=== PATIENT | male | born 1965 | race Caucasian/White ===

== ENCOUNTER → 2017-08-16 07:02 | Outpatient (CLI) | payer OTHER ==
[~2017-08-16] VITALS: Ht 170.2 cm; Wt 92.7 kg
--- NOTE | ~2017-08-16 | HEMODYNAMI ---
PATIENT:SUSAN HAGEN MEDICAL RECORD: [id number] : 69 LOCATION:[facility] ADMISSION DATE: 08/16/17 Generatedon:08/16/20179:48 Patient name: SUSAN HAGEN Patient #: [id number] SSN: : 1965 Date of study: 08/16/2017 Page: Of Hemodynamic Procedure Report Patient Data Patient Demographics Procedure consent was obtained First Name: SUSAN Gender: Male Last Name: HIEU : 1965 Patient #: [id number] Age: 51 year(s) Race: Unknown Additional ID: [id number] Contact details Address: [address] [place] [address] State: [place] City: [facility] Zip code: [address] Past Medical History Allergies: No known allergies Admission Admission Data Admission Date: 08/16/2017 Admission Time: 7:02 Height (in.): 5.7 BSA: 0.35 (m2) Height (cm.): 14.48 BMI: 4630.87 (kg/m2) Weight (lbs.): 214 Weight (kg.): 97.07 Lab Results Lab Result Date: 08/16/2017 Lab Result Time: 0:00 Biochemistry Name Units Result Min Max BUN mg/dl 14 --(--*-)-- 7 18 Creatinine mg/dl 1 --(--*-)-- 0.6 1.3 CBC Name Units Result Min Max Hemoglobin g/dl 17.3 --(---*)-- 13.5 17.5 Procedure Procedure Types Cath Procedure Diagnostic Procedure LHC LHC w/Coronaries Aortic Root Angiography Sedation Charges Moderate Sedation up to 30 minutes Procedure Description Procedure Date Procedure Date: 08/16/2017 Procedure Start Time: 9:22 Procedure End Time: 9:47 Procedure Staff Name Function Shay Major MD Performing Physician Mary Carter RT Monitor Markel Pagan RT Scrub Edy Hodgson RN Nurse Procedure Data Cath Procedure Fluoroscopy Diagnostic fluoroscopy Total fluoroscopy Time: 6.5 time: 6.5 min min Diagnostic fluoroscopy Total fluoroscopy dose: dose: 1142 mGy 1142 mGy Contrast Material Contrast Material Type Amount (ml) Isovue 300 138 Entry Location Entry Primary Successful Side Size Upsize Upsize Entry Closure Parada ccessful Closure Location (Fr) 1 (Fr) 2 (Fr) Remarks Device Remarks Radial Right 6 Fr Mechanical artery Short Compression Estimated blood loss: 5 ml Diagnostic catheters Device Type Used For End Catheter Placement DIAGNOSTIC Len 110cm Procedure 5Fr catheter ([id number]) DIAGNOSTIC AR MOD 5Fr Procedure Catheter ([id number]) DIAGNOSTIC AR 2 MOD 5 Fr Procedure catheter ([id number]) DIAGNOSTIC Pigtail 5Fr Aortic Root catheter ([id number]) Angiography Procedure Complications No complications Procedure Medications Medication Administration Route Dosage Oxygen NC 2 l/min Lidocaine 2% added to field 20 Heparin Flush Bag added to field 2 bags (1000units/500ml NS) 0.9% NaCl I.V. 100 ml/hr Versed I.V. 1 mg Fentanyl I.V. 50 mcg Versed I.V. 1 mg Fentanyl I.V. 50 mcg Radial Cocktail I.A. 1 syringe (Verapomil 2mg/Nitro 400mcg/Heparin 1500units) Hemodynamics Rest BSA: 0.35 (m2) HGB: 17.3 (g/dl) O2 Consumption: Estimated: 41.93 (ml/min) O2 Con sumption indexed: Estimated:119.8 (ml/min/m) Heart Rate: 70 (bpm) Pressure Samples Time Site Value (mmHg) Purpose Heart Use Rate(bpm) 9:25 LV 133/-2,16 Snapshot 79 9:26 AO 115/78(91) Pullback 79 9:26 LV 131/-3,10 Pullback 79 Gradients Valve Time Site 1 Site 2 Mean SEP/DFP Peak To Heart Use (mmHg) (sec/min) Peak Rate (mmHg) (bpm) Aortic 9:26 LV AO 11 5 16 79 131/-3,10 115/78(91) Calculations Valve P-P Mean Valve Index Valve Source Name Gradient Area Flow (cm2) Aortic 16 11 16 11 Snapshots Pre Cath Intra NCS Post Cath Vital Signs Time Heart Resp SPO2 etCO2 NIBP (mmHg) Rhythm Pain Sedation Rate (ipm) (%) (mmHg) Status Level (bpm) 9:08:16 75 16 100 22.5 160/101(123) NSR 0 (11) 10(A) , No pain 9:12:56 78 15 95 0 146/104(121) NSR 0 (11) 10(A) , No pain 9:17:41 79 15 93 0 151/92(130) NSR 0 (11) 10(A) , No pain 9:22:22 76 16 93 24 142/100(117) NSR 0 (11) 9(A) , No pain 9:27:06 79 16 94 27.7 133/79(116) NSR 0 (11) 9(A) , No pain 9:31:47 78 16 92 27 140/80(114) NSR 0 (11) 9(A) , No pain 9:36:28 77 14 93 21.7 142/87(126) NSR 0 (11) 9(A) , No pain 9:41:12 75 15 94 23.2 141/82(101) NSR 0 (11) 9(A) , No pain 9:45:55 71 18 93 25.5 134/86(103) NSR 0 (11) 10(A) , No pain Medications Time Medication Route Dose Verified Delivered Reason Notes E ffectiveness by by 9:06:53 Oxygen NC 2 l/min Shay Buffie used for Pedrito Hodgson RN procedure 9:07:01 Lidocaine 2% added 20ml Hsay Shay for local to vial Pedrito Major MD anesthetic field 9:07:06 Heparin Flush added 2 bags Shay Shay used for Bag to Pedrito Major MD procedure (1000units/500ml field NS) 9:07:16 0.9% NaCl I.V. 100 Shay Buffie Per ml/hr Pedrito Hodgson RN physician 9:11:15 Versed I.V. 1 mg Shay Buffie for sedation Pedrito Hodgson RN 9:11:21 Fentanyl I.V. 50 mcg Shay Buffie for sedation Pedrito Hodgson RN 9:15:48 Versed I.V. 1 mg Shay Buffie for sedation Pedrito Hodgson RN 9:15:52 Fentanyl I.V. 50 mcg Shay Buffie for sedation Pedrito Hodgson RN 9:24:08 Radial Cocktail I.A. 1 Shay Shay for (Verapomil syringe Major MD Major MD vasodilation 2mg/Nitro 400mcg/Heparin 1500units) Procedure Log Time Note 8:51:56 Markel Pagan RT(R) sent for patient. Start room use. 8:51:57 Time tracking: Regular hours 8:52:00 Plan of Care:Hemodynamics will remain stable., Cardiac rhythm will remain stable., Comfort level will be maintained., Respiratory function will remain adequate., Patient/ family verbilizes understanding of procedure., Procedure tolerated without complication., Recovers from procedure without complications.. 8:54:06 H&P Date Dictated: 08/08/2017 Within 30 days and on chart., H&P Addendum completed by physician on day of procedure. (MUST COMPLETE FOR ALL OUTPATIENTS). 8:54:17 Patient Height : 5.7 inches 8:54:20 Patient Weight : 214 lbs 8:54:32 Patient allergic to No known allergies 8:56:15 Patient received from Pre/Post Procedure Room to CCL 1 Alert and oriented. Tansferred to table in Supine position. 8:56:16 Warm blankets applied, and liz hugger turned on for patient comfort. 8:56:16 Correct patient and procedure confirmed by team. 8:56:17 Signed procedure consent form obtained from patient. 8:56:18 ECG and BP/O2 sat monitors applied to patient. 9:06:53 Oxygen 2 l/min NC was administered by Edy Hodgson RN; used for procedure; 9:07:01 Lidocaine 2% 20ml vial added to field was administered by Shay Major MD; for local anesthetic; 9:07:06 Heparin Flush Bag (1000units/500ml NS) 2 bags added to field was administered by Shay Major MD; used for procedure; 9:07:16 0.9% NaCl 100 ml/hr I.V. was administered by Edy Hodgson RN; Per physician; 9:07:19 Vital chart was started 9:07:51 Baseline sample Acquired. 9:08:03 Rhythm: sinus rhythm 9:08:04 Full Disclosure recording started 9:08:06 Pre-procedure instructions explained to patient. 9:08:06 Pre-op teaching completed and patient verbalized understanding. 9:08:10 Family in patients room. 9:08:11 Patient NPO since Midnight. 9:08:13 Is the patient allergic to Iodine/contrast media? No. 9:08:14 Is patient on blood thinner?No 9:08:17 Patient diabetic? No. 9:08:22 Previous problem with sedation/anesthesia? No ? 9:08:23 Snore? Yes 9:08:24 Sleep apnea? No 9:08:29 Deviated septum? No 9:08:30 Opens mouth fully? Yes 9:08:30 Sticks out tongue? Yes 9:08:33 Airway obstruction? No ? 9:08:36 Dentures? No ? 9:08:44 Pre procedure: right dorsailis pedis pulse 2+ Normal; easily identifiable; not easily obliterated 9:08:48 Modified Manuel's test Ulnar < 7 seconds 9:08:52 Patient pain scale 0/10 ?. 9:09:00 IV patent on arrival in left hand with 0.9% NaCl at [facility]. 9:09:33 Lab Result : BUN 14 mg/dl 9:09:33 Lab Result : Creatinine 1 mg/dl 9:09:33 Lab Result : Hemoglobin 17.3 g/dl 9:09:38 Lab results completed and on chart. 9:09:44 Right Radial & Right Groin area was prepped with chlora-prep and draped in sterile fashion 9:09:45 Alarms reviewed by R. N. 9:09:46 Sharps counted by scrub and verified by R.N. 9:10:55 --------ALL STOP TIME OUT------ 9:10:56 Final Timeout: patient, procedure, and site verified with staff and physician. All members of the team are in agreement. 9:10:58 Right Radial & Right Groin site verified by team. 9:11:03 Physical assessment completed. ASA score P 2 - A patient with mild systemic disease as per Shay Major MD. 9:11:06 Sedation plan: IV Moderate Sedation Medication:Versed, Fentanyl 9:11:15 Versed 1 mg I.V. was administered by Edy Hodgson RN; for sedation; 9:11:18 Use device set Radial Dx or PCI 9:11:20 ACIST Syringe (83371) opened to sterile field. 9:11:21 Fentanyl 50 mcg I.V. was administered by Edy Hodgson RN; for sedation; 9:11:21 Bag Decanter (2002) opened to sterile field. 9:11:24 ACIST Hand Control (04404) opened to sterile field. 9:11:24 ACIST Manifold (78977) opened to sterile field. 9:11:25 Tegaderm 4 x 4 (1626W) opened to sterile field. 9:11:26 Medline Cath Pack ([id number]) opened to sterile field. 9:11:27 SHEATH 6FR Slender ([id number]) opened to sterile field. 9:11:27 DIAGNOSTIC WIRE .035 260cm J wire (206307) opened to sterile field. 9:11:29 MBrace Wrist Support ([id number]) opened to sterile field. 9:11:30 NEEDLE Cook 21G 4cm Radial (U42915) opened to sterile field. 9:15:48 Versed 1 mg I.V. was administered by Edy Hodgson RN; for sedation; 9:15:52 Fentanyl 50 mcg I.V. was administered by Edy Hodgson RN; for sedation; 9:22:03 Zero performed for pressure channel P1 9:22:21 Procedure started. 9:22:44 Local anesthetic to right radial artery with Lidocaine 2% by Shay Major MD.INITIAL ACCESS ONLY 9:23:43 A 6 Fr Short sheath was inserted into the Right Radial artery 9:24:08 Radial Cocktail (Verapomil 2mg/Nitro 400mcg/Heparin 1500units) 1 syringe I.A. was administered by Shay Major MD; for vasodilation; 9:24:09 A DIAGNOSTIC Len 110cm 5Fr catheter (351479) was advanced over the wire and used for Procedure. 9:24:46 Injector settings: Ml/sec: 5, Volume: 15, 9:24:54 LV gram done using GARCIA 9:25:55 LV hemodynamics recorded. 9:26:08 EF : 55 % 9:29:56 LCA angiography performed. 9:30:19 Catheter removed. 9:30:29 unable to engage RCA 9:30:38 A DIAGNOSTIC AR MOD 5Fr Catheter ([id number]) was advanced over the wire and used for Procedure. 9:33:10 Catheter removed. 9:33:31 unable to engage RCA 9:34:02 A DIAGNOSTIC AR 2 MOD 5 Fr catheter ([id number]) was advanced over the wire and used for Procedure. 9:36:22 RCA angiography performed. 9:38:31 Catheter removed. 9:41:44 A DIAGNOSTIC Pigtail 5Fr catheter ([id number]) was advanced over the wire and used for Aortic Root Angiography. 9:42:48 Aortic Root visualized 9:43:02 Catheter removed. 9:43:54 Sheath removed intact; hemostasis achieved with Mechanical Compression to the Right Radial artery. 9:43:57 Procedure ended.(Physican Out) 9:44:30 Fluoroscopy time 06.50 minutes. 9:44:34 Flurop Dose total: 1142 9:44:34 Fluoroscopy dose: 1142 mGy 9:44:38 Contrast amount:Isovue 300 138ml. 9:45:23 Sharps counted by scrub and verified by R.N. 9:45:27 TR band inflated with 12cc of air. 9:45:32 Post-procedure physical assessment completed. ASA score P 2 - A patient with mild systemic disease as per Shay Major MD. 9:45:36 Post procedure rhythm: unchanged. 9:45:40 Estimated blood loss: 5 ml 9:45:42 Post procedure instruction explained to patient.Patient verbalizes understanding. 9:45:43 Patient needs reinforcement of post procedure teaching. 9:46:04 Procedure type changed to Cath procedure, Diagnostic procedure, LHC, LHC w/Coronaries, Aortic Root Angiography, Sedation Charges, Moderate Sedation up to 30 minutes 9:47:32 Procedure and supply charges have been captured, reviewed, submitted and are correct. 9:47:34 Procedure Complication : No complications 9:47:36 Vital chart was stopped 9:47:37 See physician's report for complete and final results. 9:47:38 Report given to Pre/Post Procedure Room. 9:47:41 Patient transfered to Pre/Post Procedure Room with Bed. 9:47:43 Procedure ended. 9:47:43 Full Disclosure recording stopped 9:47:46 End room use (Document Last) Device Usage Item Name Manufacture Quantity Catalog Hospital Part Current Minima l Lot# / Number Charge Number Stock Stock Serial# Code ACIST Acist 1 35068 894908 985581 558576 20 Syringe [employer]park (28199) [employer] Bag Decanter Microtek 1 975344 89727 156725 5 () Medical Inc. ACIST Hand Acist 1 72834 737874 014883 555822 5 Control Medical (15940) Systems Inc ACIST Acist 1 01366 245758 734901 251851 5 Manifold Medical (82628) Systems Inc Tegaderm 4 x 3M 1 1626W 871812 408704 859720 5 4 (1626W) Medline Cath Cardinal 1 [id number] 667342 13921 488675 5 Pack Health ([id number]) SHEATH 6FR Terumo 1 [id number] 969448 739698 055479 40 Slender ([id number]) DIAGNOSTIC [facility] 1 701075 037308 373182 997148 30 WIRE .035 260cm J wire (270658) MBrace Wrist Advanced 1 140-0250-00 101749 65215 542554 5 Support Vascular ([id number]) Dynamics NEEDLE Cook Cook Medical 1 F92838 401927 871848 788143 5 21G 4cm Radial (Q09281) DIAGNOSTIC Terumo 1 40-5604 549662 923102 704160 5 Len 110cm 5Fr catheter (217934) DIAGNOSTIC Cardinal 1 [id number] 724466 728216 560344 15 AR MOD 5Fr Health Catheter (641281Y) DIAGNOSTIC Cardinal 1 [id number] 288371 804650 876261 20 AR 2 MOD 5 Health Fr catheter (224257L) DIAGNOSTIC Cardinal 1 [id number] 642388 610847 816952 5 Pigtail 5Fr Health catheter (880682K) Signature Audit [place] Stage Time Signature Unsigned Intra-Procedure 08/16/2017 Mary Carter 9:48:15 AM RT(R) Signatures Monitor : Mary Carter Signature : RT Date : Time : [facility] [address], [place] [address]
[~2017-08-16 07:02] MED LIST: ISOSORBIDE MONO30 M1 PO; NORVASC10 MG PO; REQUIP0.5 MG PO; ZOCOR20 MG PO; ZYLOPRIM300 MG PO
[2017-08-16 07:36] VITALS: BP 151/94; Ht 170.2 cm; Wt 92.7 kg
[2017-08-16 07:40] LABS: BASOPHILS 0.2 % (0-2); EOSINOPHILS 0.8 % (0-7); HEMATOCRIT 50.8 % (42.0-54.0); HEMOGLOBIN 17.3 g/dL (13.5-17.5); IMMATURE GRANULOCYTES 0.2 % (0-5); LYMPHOCYTES 17.7 % (15-50); MCH 29.1 pg (26.0-34.0); MCHC 34.1 g/dL (31.0-37.0); MCV 85.5 fL (80.0-100.0); MEAN PLATELET VOLUME 9.8 fL (7.4-10.4); MONOCYTES 13.6 % (2-11); NEUTROPHILS 67.5 % (40-80); RBC 5.94 10x6/uL (4.20-6.10); RDW 13.2 % (11.5-14.5); WBC 9.5 10x3/uL (4.8-10.8)
[2017-08-16 07:49] LABS: CALC OSMOLALITY 275 mosm/kg (275-300); CALCIUM 8.7 mg/dL (8.5-10.1); CARBON DIOXIDE 24.4 mmol/L (21.0-32.0); CHLORIDE - SERUM 101 mmol/L (98-107); GLUCOSE 115 mg/dL (74-106); POTASSIUM - SERUM 3.7 mmol/L (3.5-5.1); SODIUM 137 mmol/L (136-145); UREA NITROGEN 14 mg/dL (7-18); eGFR NON AFRICAN AMERICAN 84 mL/min (90-120)
[2017-08-16 07:51] LABS: PLATELET COUNT 210 10x3/uL (130-400)
== END | disposition home or self-care (01) ==
LOC: D.CATH 07:02
PROVIDERS: Internal Medicine Cardiovascular Disease
DX: I25.119 Atherosclerotic heart disease of native coronary artery with unspecified angina pectoris (principal); I35.1 Nonrheumatic aortic (valve) insufficiency; Z01.812 Encounter for preprocedural laboratory examination